=== PATIENT | male | born 1930 | race Caucasian/White ===

== ENCOUNTER 2016-12-16 20:39 | Inpatient (IN) | payer MEDICARE, BC, OTHER ==
--- NOTE | ~2016-12-16 | A ---
[facility] Nutrition Therapy DATE: 12/18/16 Patient: KOFI TRACY Physician: VILMA Address: [address] [facility] Room/Bed: [address] [place] [address], Zip: [place] [address] Admit Date: 12/17/16 Date of : 30 Height: 5 4 Weight: 122 55.6 NUTRITIONAL ASSESSMENT: REASON: EN consult Admitting Dx: 86 y/o male admitted from [facility] with respiratory failure, found to have mild cardiomegaly and CHF exacerbation, YOLA pleural effusions PMH: Afib, SD, CAD, HTN, HLD, CKD, CHF, GERD, CVA with residual dysphagia s/p PEG, diverticular disease Anthropometrics: Ht: 67" (previously reported per family), Wt: 55.6 kg (122 lbs), BMI: 19.1 (normal), 82% IBW Past weights: 113-143 lbs July 2016 Patient appears his current stated weight Labs: K+ 3.1, BUN 48 Meds: Coreg, Furosemide, PPI, Dobutamine/dextrose I/O & Bowel function: LBM unknown Skin Integrity: PEG site abdomen, dry skin, scattered bruises Estimated Nutrition Needs: 3204-0025 kcals per day (25-30 kcals/kg) 61-72 g protein per day (1.1-1.3 g/kg) Fluids consistent with kcal needs or per MD Assessment: Chart reviewed, events noted. See admitting dx and PMH as stated above. RD consulted to leave EN recs via PEG, patient is to remain NPO. Patient not able to participate in his care, poor long-term prognosis. He appears his stated weight and although his BMI is considered normal he is 82% IBW and has obvious signs of muscle and fat wasting. Based on his weight during time of previous RD assessment in July of last year I suspect he has lost approx. 13 lbs in the past 4 months (9.6% body weight; severe loss). It is unclear what EN regimen he is on at [facility], will monitor weight trend closely and adjust EN regimen as needed. Due to his weight loss and physical signs of muscle/fat wasting he qualifies for severe protein calorie malnutrition (see separate documentation for full details). See EN recs as stated below, will follow. Dx: Malnutrition r/t chronic illness, advanced age, dysphagia AEB weight loss > 7.5% in 3 months, obvious subcutaneous fat loss and muscle loss proportional to total weight loss, need for enteral nutrition support. [facility] Nutrition Therapy DATE: 12/18/16 Patient: KOFI TRACY Physician: VILMA Address: [address] [place] [address] Room/Bed: [address] [place] [address], Zip: [place] [address] Admit Date: 12/17/16 Date of : 30 Height: 5 4 Weight: 122 55.6 Intervention: Start EN, replace lytes, closely monitor weight Monitoring, Evaluation and Goals: 1. EN consistent with estimated needs, to provide > 80% goal volume x 24 hours. 2. Prevent further weight loss, increase lean body mass. 3. Lytes WNL. 4. Promote regular BM's. 5. Prevent skin breakdown. Monitor: Per protocol, criteria to determine if above goals met Recommendations: 1. Replace lytes prn (K+ low). 2. Start enteral nutrition via PEG with TwoCal HN formula to provide lower volume feedings noting mild CHF and volume overload. Start at 20 ml/hr and increase by 10 ml q 8 hours until goal rate of 35 ml/hr is reached, to provide 840 ml, 1680 kcals, 70 g protein and 588 ml water. Once at goal rate add free water flushes per MD. 3. Based on the patient's suspected weight loss and obvious signs of muscle/fat wasting he qualifies for severe protein calorie malnutrition. See separate documentation for full details. 4. Daily weights to monitor fluid status and prevent further unintentional weight loss. RD will follow for tolerance of EN Moderate nutrition risk Respectfully, Devi Camargo, MARCO, LD Food and Nutritional Services [facility] cc: client file
--- NOTE | ~2016-12-16 | HP ---
Unit #: [id number] #: [id number] Patient: KOFI TRACY [id number] [address] [place], [place] [address] [id number] I MR#: [id number] NAME: KOFI TRACY. ROOM: 34251 Age: 86 Sex: M Admission Date: 12/17/2016 : 1930 Attending Physician: Tania Bowen M.D. Primary Care Physician: Ronal Lara M.D. HISTORY AND PHYSICAL CHIEF COMPLAINT Respiratory failure. HISTORY This 86-year-old male with ischemic cardiomyopathy, atrial fibrillation, previous CVA with dysphagia, is admitted for shortness of breath. Patient lives at [facility]. He was noted to be using his accessory muscles to breathe with facial edema, diaphoretic and pale. He was brought to this emergency department where he currently is requiring oxygen. Does have crackles in his left base, but also some thick mucus in his mouth. Chest x-ray shows mild cardiomegaly with small bilateral pleural effusions and bibasilar atelectasis versus infiltrates increased on the right from before. BNP is 5,000. In the ER, the patient was given 40 mg of IV Lasix, Zosyn and vancomycin. He was afebrile with a normal white count. Apparently, at the [facility], he may have had a syncopal episode as well. PAST MEDICAL HISTORY 1. Ischemic cardiomyopathy, ejection fraction 15% to 20% with chronic atrial fibrillation. Patient is status post AICD placement. 2. Hyperlipidemia. 3. Chronic kidney disease. 4. 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 Patient has a PEG tube in place. 5. History of anemia. 6. Bilateral hernia repair. 7. Carpal tunnel release. 8. Cataract extraction. 9. PEG tube. ALLERGIES No known drug allergies. [facility] MEDICATIONS 1. Jevity 1.5 calorie liquid, 1 can t.i.d. flush with 200 mL of water and 100 mL before and after feedings three times a day. 2. Lexapro 10 mg daily 3. Lasix 20 mg daily 4. Patient currently is taking cefdinir for possible pneumonia b.i.d. 5. Aspirin 81 mg daily 6. Allopurinol 300 mg daily 7. Protonix 40 mg daily 8. Coreg 3.125 mg b.i.d. Unit #: [id number] #: [id number] Patient: KOFI TRACY 9. Lipitor 40 mg daily 10. Lortab 7.5 b.i.d. p.r.n. 11. DuoNebs q.4 hours as needed 12. Tylenol p.r.n. 13. Skin care lotions p.r.n. FAMILY HISTORY Noncontributory. SOCIAL HISTORY The patient lives at [facility]. He currently does not smoke or drink alcohol. REVIEW OF SYSTEMS Impossible to obtain as patient is confused and hard of hearing. PHYSICAL EXAMINATION GENERAL: Confused and hard of hearing, frail-appearing 86-year-old male currently in no acute distress. VITAL SIGNS: Temperature 98.5, pulse 86, respirations 24, blood pressure 103/74, O2 saturation 100% on 4 L of oxygen. Patient does sound to be congested on exam. HEENT EXAMINATION: Eyes PERRLA. Pharynx edentulous with some mucus in the oropharynx. NECK: Supple without adenopathy or thyromegaly. CHEST: Reveals crackles at the left base. CARDIAC: Normal S1 and S2 without definite murmur. ABDOMEN: Bowel sounds are present. PEG tube is in the upper abdomen and nontender. No hepatosplenomegaly or masses. EXTREMITIES: Without edema. NEUROLOGIC EXAM: Patient is awake, alert. He seems to be a bit confused. His cranial nerves are intact, except that he is hard of hearing. He is generally weak throughout. DIAGNOSTIC STUDIES ADMISSION LABORATORY: Hematocrit 38.3, normal white count, platelet count. Normal coags. BUN 65, albumin 3, alk phos 145, BNP 5,000. Cardiac markers are negative. ABG: pH 7.48, pCO2 36, pO2 102, O2 saturation 96.8% on 3 L oxygen. IMAGING: Chest x-ray - Mild cardiomegaly, small bilateral pleural effusions with bibasilar atelectasis versus infiltrates are increased on the right. CARDIOLOGY: EKG - Ventricular paced rhythm. ASSESSMENT 1. Dyspnea, rule out aspiration. However, patient does have a markedly elevated BNP and history of ischemic cardiomyopathy. 2. Ischemic cardiomyopathy, ejection fraction 15% to 20% with history of atrial arrhythmia status post automatic implantable cardioverter defibrillator (AICD) placement. Had a possible [facility]opal episode at the [facility]. 3. Prior cerebrovascular accident status post tPA, now with dysphagia and percutaneous endoscopic gastrostomy tube. Of note, patient is edentulous. Unit #: [id number] #: [id number] Patient: KOFI TRACY PLANS 1. Vancomycin and cefepime. This will cover for MRSA as well as Gram negatives. As patient is edentulous, do not need to cover for anaerobes. Will continue with DuoNebs on a routine basis and p.r.n. suction. 2. Increase Lasix, repeat cardiac enzymes and ask Cardiology to see. May need dobutamine drip. 3. Patient is a Full Code per the [facility], his long-term prognosis, however, is poor. 4. DVT prophylaxis. Dictated by Sandy Le/psc TD: 12/17/2016 03:35 JOB #: [id number] HISTORY AND PHYSICAL Page 1 of 1 X Tania Bowen MD X HISTORY AND PHYSICAL
--- NOTE | ~2016-12-16 | MAL ---
[facility] Nutrition Therapy DATE: 12/18/16 Patient: KOFI TRACY Physician: VILMA Address: [address] [place] [address] Room/Bed: [address] [place] [address], Zip: [place] [address] Admit Date: 12/17/16 Date of : 30 Height: 5 4 Weight: 122 55.6 PHYSICAL MALNUTRITION ASSESSMENT Energy Intake Comment: Patient is NPO and receives EN via PEG. Unsure of EN regimen at [facility] so unable to assess usual intake. Weight Loss, Chronic Illness Severe: >7.5% past 3 months Weight Loss, Comment: Suspected weight loss of 9.6% body weight in 4 months based on previous and current documented weight. Physical Findings Body Fat and Muscle Mass Severe: (obvious) significant muscle wasting and/or loss of subcutaneous fat Physical Findings Functional Capacity Severe: (obvious) bedridden or otherwise significantly reduced functional capacity Physical Findings Fluid Accumulation Moderate: (suggested) incresed fluid/edema Physical Findings Comment: Patient is basically bedridden and unable to participate in his care, poor long-term prognosis but remains full code at this time. Obvious physical signs of fat/muscle loss include hollow orbitals with dark circles, loss of fat over triceps, severe protrusion of clavicle and severe depression of temporal muscle, depression of interosseous muscles and buccal. Malnutrition Survey Results: Malnutrition identified Malnutrition Etiology Summary: Chronic illness severe Malnutrition Survey Comment: See full RD assessment for recommendations. Respectfully, Devi Camargo, RD, LD Food and Nutritional Services [facility] Nutrition Therapy DATE: 12/18/16 Patient: KOFI TRACY Physician: VILMA Address: [address] [place] [address] Room/Bed: [address] [place] [address], Zip: [place] [address] Admit Date: 12/17/16 Date of : 30 Height: 5 4 Weight: 122 55.6 cc: client file
--- NOTE | ~2016-12-16 | CO ---
Unit #: [id number] #: [id number] Patient: KOFI TRACY [id number] [address] [place], [place] [address] [id number] I MR#: [id number] NAME: KOFI TRACY. ROOM: 304 Age: 86 Sex: M Admission Date: 12/17/2016 : 1930 Attending Physician: Sonal Perez M.D. Primary Care Physician: Ronal Lara M.D. CONSULTATION REPORT REASON FOR CONSULTATION Questionable congestive heart failure. HISTORY OF PRESENT ILLNESS This is an 86-year-old white male who was transferred from [facility] because of shortness of breath, facial edema, diaphoresis and paleness. He was noted to use his accessory muscles for breathing. The patient has had a previous CVA and is unable to provide a history. Information has been obtained from the chart and previous records. According to the records, the patient had a history of a myocardial infarction in 2013 where he underwent angioplasty and stent placement to the left anterior descending artery. He is known to have chronic systolic heart failure and ischemic cardiomyopathy where he has AICD placed. In the emergency room, his BNP was elevated at 4877. He has been started on IV diuretics. PAST MEDICAL HISTORY 1. Myocardial infarction 10/2013 with unsuccessful attempt to dilate LAD. 2. Repeat cardiac catheterization 01/10/2014 which showed fractional flow reserve measurement of 0.9 to the right coronary artery, 70% distal stenosis. Left main normal. LAD with 99% stenosis at the first septal litigation attorney. Mild LAD 50%. Circumflex marginal branch with 99% stenosis. 3. Status post PCI with stent placement to the LAD. 4. 2D echocardiogram in 12/2013 shows ejection fraction of 15% to 20% with moderate mitral regurgitation and mild aortic stenosis and mild tricuspid regurgitation. 5. Chronic systolic heart failure. 6. Permanent atrial fibrillation, not on anticoagulation. 7. Ischemic cardiomyopathy, status post [employer] AICD October 2013. 8. Hypertension. 9. Hyperlipidemia. 10. Cerebrovascular accident. 11. GERD. 12. Anemia. 13. Dysphagia, status post PEG placement. 14. Former smoker. 15. Chronic kidney disease. PAST SURGICAL HISTORY 1. PEG placement. 2. Carpal tunnel release. 3. Cataract extraction. 4. Bilateral hernia repair. Unit #: [id number] #: [id number] Patient: KOFI TRACY 5. AICD implantation. SOCIAL HISTORY The patient resides at [facility]. He quit smoking more than 35 years ago. There is no history of illicit drug or alcohol use. FAMILY HISTORY Negative for coronary artery disease. ALLERGIES No known drug allergies. HOME MEDICATIONS 1. Lasix 20 mg daily. 2. Cefdinir 300 mg b.i.d. 3. Aspirin 81 mg daily. 4. Allopurinol 300 mg daily. 5. Protonix 40 mg daily. 6. Carvedilol 3.125 mg b.i.d. 7. Lipitor 40 mg q. h.s. 8. Hydrocodone/acetaminophen 7.5/325 10 mL b.i.d. p.r.n. 9. Combivent mini nebs q.i.d. p.r.n. 10. Acetaminophen 20 mL q.6 hours p.r.n. 11. Escitalopram oxalate 10 mg daily. REVIEW OF SYSTEMS Unable to obtain because the patient is hard of hearing and nonverbal. PHYSICAL EXAMINATION VITAL SIGNS: Blood pressure 102/70, heart rate 78, temperature 98.6. GENERAL: This is an 86-year-old white male who is in no acute respiratory distress. NEUROLOGICAL: He is hard of hearing but no attempt to speak. Opens eyes briefly. NECK: Trachea is midline. No thyromegaly or lymphadenopathy. Possible jugular venous distention. HEART: S1, S2 with a positive S3. No murmurs, no rubs or clicks. Regular rate and rhythm. ABDOMEN: Soft, nontender with bowel sounds present. EXTREMITIES: Without leg edema. SKIN: Pale and dry. DIAGNOSTIC STUDIES LABORATORY: Hemoglobin 11.6, hematocrit 36.9, platelet count 147, white count 9.1, sodium 138, potassium 3.9, BUN 58, creatinine 1.2, glucose 86. BNP greater than 4877. IMAGING: Chest x-ray shows mild congestive heart failure. There is mild bibasilar atelectasis. Small bilateral pleural effusions. CARDIOVASCULAR: Electrocardiogram shows ventricular paced rhythm with underlying atrial fibrillation. There is lateral wall ischemia with T wave inversion that was sited on previous electrocardiogram. IMPRESSION 1. Acute on chronic systolic heart failure with reduced ejection fraction of 25%. Unit #: [id number] #: [id number] Patient: KOFI TRACY 2. Ischemic cardiomyopathy, status post automatic implantable cardioverter defibrillator. 3. Permanent atrial fibrillation with a controlled ventricular rate. 4. History of cerebrovascular accident. 5. History of coronary artery disease, status post PCI and sent to the [facility] in 2013 after myocardial infarction. PLAN 1. Cardiology was called for congestive heart failure. Agree with IV diuretics. 2. Will start dobutamine drip. 3. Will hold carvedilol while on dobutamine. When blood pressure improves, will start the patient on low dose VAN inhibitor for afterload reduction. Will follow the patient with you. Thank you for allowing us to assist in this patient's care. Dictated by... Michael HenaoPJenniferRJenniferNJennifer for [place]/maria TD: 12/18/2016 07:53 JOB #: [id number] CONSULTATION REPORT Page 1 of 1 X Jon Granda APRN X CONSULTATION REPORT
--- NOTE | ~2016-12-16 | EKG ---
PATIENT: KOFI TRACY UNIT #: [id number] Ventricular Rate: 74 BPM Atrial Rate: 68 BPM QRS Duration: 128 ms Q-T Interval: 420 ms QTC Calculation(Bezet): 466 ms Calculated R [place]: -64 degrees Calculated T [place]: 157 degrees Diagnosis Line: Ventricular-paced rhythm with occasional Premature Diagnosis Line: ventricular complexes Diagnosis Line: Abnormal ECG Diagnosis Line: When compared with ECG of 06-AUG-2016 16:27, Diagnosis Line: Electronic ventricular pacemaker has replaced Diagnosis Line: Atrial fibrillation Diagnosis Line: Confirmed by TERESO BERGER MD ([id number]) on 12/18/2016 Diagnosis Line: 6:56:28 PM INTERPRETING MD: CELINE BECKETT
--- NOTE | ~2016-12-16 | CR72 ---
[facility] A Service of [facility] RADIOLOGY TEXT RESULTS PATIENT: KOFI TRACY LOCATION: [facility] 304-01 : 30 UNIT #: [id number] AGE: [address]: Sonal Perez MD SEX: M ORDER DR: [id number] [facility] [address] [facility]. [place], [place] [address] [id number] MR#: [id number] Acc #: [id number] NAME: KOFI TRACY. : 1930 SEX: M STUDY DATE/TIME: 12/16/2016 21:23 UNIT: [facility] ROOM: STUDY DESCRIPTION: CR Chest Single View Portable Attending Physician: Dennys Jurado M.D. Ordering Physician: Dennys Jurado M.D. Primary Care Physician: Ronal Lara M.D. MEDICAL IMAGING REPORT This report is preliminary unless electronic signature is present EXAM Portable chest. HISTORY Shortness of air and weakness today. FINDINGS Mild cardiac enlargement. Normal pulmonary vascularity. Small bilateral pleural effusions. Mild patchy bibasilar atelectasis or infiltrate, similar on the left and increased on the right compared to 08/06/2016. Mild right lower thoracic curve. IMPRESSION Mild cardiac enlargement with small bilateral pleural effusions and mild bibasilar atelectasis or infiltrate, similar on the left and slightly increased on the right compared to 08/06/2016. Dictated by... Dao Dalton M.D. THIS IS AN ELECTRONICALLY VERIFIED REPORT Dao Dalton M.D. at 12/17/2016 2:30 PM DFVipin/jeffrey TD: 12/17/2016 00:36 JOB #: [id number] MEDICAL IMAGING REPORT Page 1 of 1 COPY
--- NOTE | ~2016-12-16 | DS ---
Unit #: [id number] #: [id number] Patient: KOFI TRACY [id number] [address] [address] [id number] I MR#: [id number] NAME: KOFI TRACY. ROOM: 304 Age: 86 Sex: M Admission Date: 12/17/2016 : 1930 Discharge Date: 12/19/2016 Attending Physician: Sonal Perez M.D. Primary Care Physician: Ronal Lara M.D. DISCHARGE SUMMARY PRINCIPAL DIAGNOSES 1. Kvjzj-tf-ksgahre systolic congestive heart failure with ejection fraction of 20%. 2. Acute hypoxic respiratory failure, secondary to #1, now resolved. 3. Chronic kidney disease stage 3. Baseline creatinine of 1.2. Discharge creatinine 1.2. 4. Chronic atrial fibrillation, rate controlled and not on anticoagulation. 5. History of stroke with subsequent dysphagia. 6. Dysphagia, status post percutaneous endoscopic gastrostomy tube and maintained on tube feeds. 7. Memory loss, likely vascular dementia. 8. Mild hypokalemia. 9. Chronic immobility. 10. Hyperlipidemia. 11. Moderate protein malnutrition. CONSULTANTS Dr. Robertson, cardiology. PROCEDURES Chest x-ray on December 16, 2016 with cardiac enlargement and small bilateral pleural effusions. Mild bibasilar atelectasis. CLINICAL HISTORY AND HOSPITAL COURSE Mr. Tracy is an 86-year-old male who presents to the emergency department from his long-term care facility with increasing shortness of breath. In the emergency department BNP was approximately 5000. Chest x-ray revealed questionable atelectasis versus infiltrate. White blood cell count upon presentation was normal. Patient was subsequently admitted. Patient was started on IV diuretics and Cardiology was consulted. patient was subsequently placed on IV dobutamine and did have a good diuresis. His associated respiratory failure resolved with diuresis. Patient has been transitioned back to oral diuretics which he will continue at the nursing facility for comfort measures. Hypoxia has resolved. Again there were concerns about questionable pneumonia upon presentation however patient remained afebrile and had normal white blood cell count. Given his elevated BNP antibiotics were discontinued and patient remained stable. I doubt pneumonia and no further antibiotics will be given. Unit #: [id number] #: [id number] Patient: KOFI TRACY I discussed goals of care with the patient's son, Jatin Tracy. Patient has had significant physical and mental decline over the last month or so. At this time patient's code status has been changed to DNR and it is Jatin's wishes that patient be made comfortable only thus he is going to return to his nursing facility with palliative care only. DISCHARGE CONDITION Stable. DISCHARGE STATUS Return to custodial with palliative care. DISCHARGE MEDICATIONS 1. DuoNeb nebulizer treatments 3 mL q.i.d. p.r.n. for shortness of air. 2. Tylenol Elixir 325 mg per 10 mL. Patient takes 20 mL per PEG q.6 h. p.r.n. for fever. 3. Lexapro 10 mg per PEG daily. 4. Coreg 3.125 mg per PEG b.i.d. 5. Jevity 1.5 one can per PEG t.i.d. Patient is to take 200 mL of free water q.i.d. with 100 mL of free water before and after feedings t.i.d. 6. Lasix 40 mg per PEG b.i.d. 7. Allopurinol 300 mg per PEG daily. 8. Aspirin 81 mg per PEG daily. 9. Lortab Elixir 7.5/325 mg per 15 mL. Patient is to take 10 mL per PEG q.12 h. p.r.n. for pain. 10. Protonix 40 mg per PEG daily. DISCHARGE INSTRUCTIONS 1. Patient will remain n.p.o. and receive his medications per PEG. However I will note that goal is comfort only. I think if patient wants to eat or wants to drink he could do so with the understanding by his family that this will result in aspiration and shortness of breath. 2. Patient is chronically immobile but can try to increase activity if he so desires. FOLLOWUP Per claim review medical director of facility; again patient is now DNR per family request and will be palliative care at the nursing facility. Dictated by... Sonal Perez M.D. Terra/lin TD: 12/19/2016 15:34 JOB #: [id number] Unit #: [id number] #: [id number] Patient: KOFI TRACY DISCHARGE SUMMARY Page 1 of 1 X Sonal Perez MD X DISCHARGE SUMMARY
[~2016-12-16 20:39] MED LIST: ACETAMINOPHEN PO; ALDACTONE PO; ALDACTONE25 MG PO; ALLOPURINOL300 MG GT; ALLOPURINOL300 MG PO; AMIODARONE PO; ASPIRIN81 M2 PO; ASPIRIN81 MG GT; ASPIRIN81 MG PO; AUGMENTIN875 M1 PO; BACITRACIN1 GM OINT TD; CARAFATE; CARVEDILOL3.125 MG GT; CARVEDILOL6.25 MG PO; CLOPIDOGREL75 MG PO; CORDARONE200 M1 PO; COREG PO; COREG6.25 MG PO; COUMADIN5 MG PO; DESENEX45 G1 EXT; FEVER REDU160 MG/5 M GT; FLOMAX0.4 M1 DOB; FLOMAX0.4 M1 PO; FUROSEMIDE GT; HYDROCODON-ACE1 EAC7 PO; HYDROCODON-ACE1 EACH PO; IPRAT-ALBUT 0.5-3 ML INH; ISORDIL PO; ISOSORBIDE MONO30 M1 PO; K-SOL20 MEQ/15 GT; LASIX PO; LASIX20 MG PO; LIPITOR40 MG GT; LIPITOR40 MG PO; LISINOPRIL-HCTZ1 T15 PO; LISINOPRIL-HCTZ1 T19 PO; LISINOPRIL2.5 MG PO; LISINOPRIL20 MG; LISINOPRIL5 MG PO; LORTAB 5/500 TA1 TA2 GT; MAPAP16 MG/0.5 GT; NEXIUM; NEXIUM PO; NORVASC PO; NOVOLOG100 U/ML; OMNICEF300 M1 PO; PLAVIX PO; PROTONIX PO; PROTONIX40 MG/BLIS GT; REMEDY NUTRASH TOP; SIMVASTATIN20 MG PO; ST JOSEPH ASPIR81 MG PO; TRIAMTERENE-HC1 EAC1 PO; TRIAMTERENE-HCT1 TA8 PO; TRIAMTERENE/HCTZ; TYLOX 5-500 CA1 EACH PO; VICODIN 5/500 T1 TAB PO; ZANTAC150 M1 PO; ZANTAC150 MG PO; ZEASORB AF TOP; ZEGERID 20 MG C1 CAP PO; ZITHROMAX500 MG PO; ZOCOR PO; ZYLOPRIM PO
[2016-12-16 21:26] LABS: ARTERIAL BLD GAS O2 SATURATION 96.8 % (90.0-100.0); ARTERIAL BLOOD GAS CARBOXY HB 1.7 %sat (0.0-9.0); ARTERIAL BLOOD GAS HCO3 27.6 mmol/L; ARTERIAL BLOOD GAS MET HB 0.5 %sat (0.0-2.0); ARTERIAL BLOOD GAS PCO2 36.5 mmHg (35.0-45.0); ARTERIAL BLOOD GAS pH 7.487 (7.350-7.450)
[2016-12-16 21:27] LABS: ARTERIAL BLOOD GAS ALLEN TEST NORMAL; ARTERIAL BLOOD GAS ART SITE RIGHT RADIAL; ARTERIAL BLOOD GAS DELIVERY NASAL CANNULA; ARTERIAL DRAW? YES
[2016-12-16 21:56] LABS: BASOPHIL# 0.1 X10e3 (0-0.3); BASOPHIL% 0.7 % (0-2.5); EOSINOPHIL% 0.4 % (0.0-7.0); HEMATOCRIT 38.3 % (38.0-50.0); HEMOGLOBIN 12.1 gm/dL (13.0-16.0); LYMPHOCYTE% 10.9 % (17.0-45.0); MEAN CELL VOLUME 95.8 FL (83-96); MEAN CORPUSCULAR HEMOGLOBIN 30.3 PG (28-34); MEAN CORPUSCULAR HGB CONC 31.6 g/dL (30-36); MEAN PLATELET VOLUME 10.1 FL (6.5-11.5); MONOCYTE# 1.1 X10e3 (0-1.0); MONOCYTE% 12.6 % (3.0-12.0); NEUTROPHIL# 6.7 X10e3 (1.5-7.1); NEUTROPHIL% 75.4 % (40-75); PLATELET COUNT 162 X10e3 (140-420); RED BLOOD COUNT 3.99 X10e (3.90-5.60); RED CELL DISTRIBUTION WIDTH 20.8 % (11.0-15.5); WHITE BLOOD COUNT 8.9 X10e3 (4.0-10.5)
[2016-12-16 21:58] LABS: DIFF IND NO
[2016-12-16 22:10] LABS: INR 1.2; PROTHROMBIN TIME (PATIENT) 12.8 SECONDS (9.6-11.5)
[2016-12-16 22:19] LABS: BILIRUBIN, DIRECT 0.2 mg/dL (0.0-0.2); BILIRUBIN,INDIRECT 0.7 mg/dL (0.0-0.9); BILIRUBIN,TOTAL 0.9 mg/dL (0.2-2.0); BUN/CREATININE RATIO 59.09; CALCIUM SERUM 8.7 mg/dL (8.4-10.2); CREATININE SERUM 1.1 mg/dL (0.6-1.4); GLOM FILT RATE Estimated 60.5 mL/min (>60); POTASSIUM 4.7 mmol/L (3.5-5.1); PROTEIN TOTAL SERUM 6.2 g/dL (6.0-8.3)
[2016-12-16 22:36] LABS: POC - CKMB 1.8 ng/mL (0.0-7.9); POC - TROPONIN <0.05 ng/mL (<=0.05)
[2016-12-17] MEDS ORDERED: ESCITALOPRAM OX10 MG GT (02:38)
[2016-12-17] MEDS ORDERED: JEVITY 1.5 CAL237 ML PEG (02:38)
[2016-12-17] MEDS ORDERED: LASIX20 MG GT (02:39)
[2016-12-17] MEDS ORDERED: ASPIRIN81 M2 PEG (02:40)
[2016-12-17] MEDS ORDERED: ALLOPURINOL300 MG PEG (02:40)
[2016-12-17] MEDS ORDERED: CEFDINIR300 M2 PEG (02:40)
[2016-12-17] MEDS ORDERED: CARVEDILOL3.125 MG PEG (02:43)
[2016-12-17] MEDS ORDERED: PROTONIX40 M1 PEG (02:43)
[2016-12-17] MEDS ORDERED: LIPITOR40 MG PEG (02:44)
[2016-12-17] MEDS ORDERED: IPRAT-ALBUT 0.5-3 ML INH (02:45)
[2016-12-17] MEDS ORDERED: HYDROCODON-ACET15 M1 PEG (02:45)
[2016-12-17] MEDS ORDERED: ACETAMINOP PEG (02:46)
[2016-12-17 07:45] LABS: BASOPHIL# 0.1 X10e3 (0-0.3); BASOPHIL% 0.7 % (0-2.5); EOSINOPHIL# 0.1 X10e3 (0-0.7); HEMATOCRIT 36.9 % (38.0-50.0); HEMOGLOBIN 11.6 gm/dL (13.0-16.0); LYMPHOCYTE# 1.1 X10e3 (1.0-3.5); MEAN CELL VOLUME 96.1 FL (83-96); MEAN CORPUSCULAR HEMOGLOBIN 30.3 PG (28-34); MEAN CORPUSCULAR HGB CONC 31.6 g/dL (30-36); MEAN PLATELET VOLUME 10.3 FL (6.5-11.5); MONOCYTE# 1.1 X10e3 (0-1.0); MONOCYTE% 12.7 % (3.0-12.0); NEUTROPHIL# 6.7 X10e3 (1.5-7.1); NEUTROPHIL% 73.6 % (40-75); PLATELET COUNT 147 X10e3 (140-420); RED BLOOD COUNT 3.84 X10e (3.90-5.60); RED CELL DISTRIBUTION WIDTH 20.2 % (11.0-15.5); WHITE BLOOD COUNT 9.1 X10e3 (4.0-10.5)
[2016-12-17 07:49] LABS: DIFF IND NO
[2016-12-17 08:09] LABS: BUN/CREATININE RATIO 48.33; CALCIUM SERUM 8.6 mg/dL (8.4-10.2); CREATININE SERUM 1.2 mg/dL (0.6-1.4); GLOM FILT RATE Estimated 54.4 mL/min (>60); POTASSIUM 3.9 mmol/L (3.5-5.1)
[2016-12-18 05:42] LABS: HEMATOCRIT 38.1 % (38.0-50.0); HEMOGLOBIN 12.1 gm/dL (13.0-16.0); MEAN CELL VOLUME 96.3 FL (83-96); MEAN CORPUSCULAR HEMOGLOBIN 30.6 PG (28-34); MEAN CORPUSCULAR HGB CONC 31.7 g/dL (30-36); MEAN PLATELET VOLUME 10.3 FL (6.5-11.5); RED BLOOD COUNT 3.95 X10e (3.90-5.60); RED CELL DISTRIBUTION WIDTH 20.1 % (11.0-15.5); WHITE BLOOD COUNT 8.3 X10e3 (4.0-10.5)
[2016-12-18 06:08] LABS: BUN/CREATININE RATIO 43.63; CALCIUM SERUM 8.8 mg/dL (8.4-10.2); CREATININE SERUM 1.1 mg/dL (0.6-1.4); GLOM FILT RATE Estimated 60.5 mL/min (>60); POTASSIUM 3.1 mmol/L (3.5-5.1)
[2016-12-19 05:10] LABS: HEMATOCRIT 36.8 % (38.0-50.0); HEMOGLOBIN 11.6 gm/dL (13.0-16.0); MEAN CELL VOLUME 95.3 FL (83-96); MEAN CORPUSCULAR HEMOGLOBIN 30.1 PG (28-34); MEAN CORPUSCULAR HGB CONC 31.6 g/dL (30-36); MEAN PLATELET VOLUME 9.9 FL (6.5-11.5); RED BLOOD COUNT 3.86 X10e (3.90-5.60); RED CELL DISTRIBUTION WIDTH 20.8 % (11.0-15.5); WHITE BLOOD COUNT 7.1 X10e3 (4.0-10.5)
[2016-12-19 06:24] LABS: BUN/CREATININE RATIO 33.33; CALCIUM SERUM 8.8 mg/dL (8.4-10.2); CREATININE SERUM 1.2 mg/dL (0.6-1.4); GLOM FILT RATE Estimated 54.4 mL/min (>60); POTASSIUM 3.9 mmol/L (3.5-5.1)
== END 2016-12-19 17:29 | DRG 291 ==
LOC: CED 20:39 → CEDOF 12-17 02:30 → C3A PCU 12-17 14:26
PROVIDERS: Emergency Medicine; Internal Medicine
DX: I13.0 Hypertensive heart and chronic kidney disease with heart failure and stage 1 through stage 4 chronic kidney disease, or unspecified chronic kidney disease (principal); I50.23 Acute on chronic systolic (congestive) heart failure; J96.01 Acute respiratory failure with hypoxia; N18.3 Chronic kidney disease, stage 3 (moderate); I48.2 Chronic atrial fibrillation; E44.0 Moderate protein-calorie malnutrition; F01.50 Vascular dementia, unspecified severity, without behavioral disturbance, psychotic disturbance, mood disturbance, and anxiety; Z93.1 Gastrostomy status; R13.10 Dysphagia, unspecified; Z87.891 Personal history of nicotine dependence; I25.5 Ischemic cardiomyopathy; I25.2 Old myocardial infarction; Z68.21 Body mass index [BMI] 21.0-21.9, adult; E78.5 Hyperlipidemia, unspecified; E87.6 Hypokalemia; M62.3 Immobility syndrome (paraplegic); Z66 Do not resuscitate; I69.391 Dysphagia following cerebral infarction; K21.9 Gastro-esophageal reflux disease without esophagitis; I25.10 Atherosclerotic heart disease of native coronary artery without angina pectoris; Z95.5 Presence of coronary angioplasty implant and graft; Z95.810 Presence of automatic (implantable) cardiac defibrillator; Z98.49 Cataract extraction status, unspecified eye
CPT/HCPCS: 36415; 36600; 71010; 80048; 80076; 82308; 82550; 82553; 82803; 83605; 83880; 84484; 85025; 85027; 85610; 85730; 87040; 93005; 94640; 94760; 99285; C9113; J0692; J1250; J1650; J1940; J2543; J3370; J3490

== ENCOUNTER 2017-03-18 17:50 | Emergency (ER) | payer MEDICARE, BC, OTHER ==
--- NOTE | ~2017-03-18 | CT4 ---
[facility] A Service of [facility] & [facility] RADIOLOGY TEXT RESULTS PATIENT: KOFI TRACY LOCATION: [facility] : 30 UNIT #: [id number] AGE: [address]: Tequila Mejia MD SEX: M ORDER DR: [id number] [facility] [address] [place], [place] [address] [id number] MR#: [id number] #: [id number] NAME: KOFI TRACY. : 1930 SEX: M STUDY DATE/TIME: 03/18/2017 21:25 UNIT: [facility] ROOM: STUDY DESCRIPTION: CT Abd and Pelv Wo Cont Attending Physician: Tequila Mejia M.D. Ordering Physician: Tequila Mejia M.D. Primary Care Physician: Ronal Lara M.D. MEDICAL IMAGING REPORT This report is preliminary unless electronic signature is present EXAM Abdomen and pelvis CT, no contrast, 03/18/2017 INDICATIONS Vomiting 4 days, dark emesis today, nausea. No history of malignancy. TECHNIQUE Noncontrast CT of the abdomen and pelvis was performed and compared with 07/14/2016. This CT exam was performed with one or more of the following radiation dose reduction techniques: Automatic exposure control, adjustment of mA and/or kV according to patient size, and iterative reconstruction. FINDINGS CT ABDOMEN: Exam markedly degraded by noncontrast technique. The lung bases are emphysematous. There has been resolution of a right-sided effusion. There is chronic-appearing pleural thickening and atelectasis in the left lung base. The appearance is similar to the prior study for technical factors. Aorta demonstrates atherosclerotic change but no aneurysm. Spleen and adrenal glands unremarkable, and the pancreas is atrophic. Gallbladder unremarkable, liver unremarkable. Extensive atherosclerotic calcifications of the splenic artery. Kidneys demonstrate no radiopaque stone or hydronephrosis. There are bilateral renal cysts, unchanged. G-tube present in the stomach. CT PELVIS: Bladder unremarkable. Moderate-sized stool ball within the rectum may reflect moderately severe constipation or early fecal impaction, correlate clinically. Prostate within normal limits; no drainable fluid collection in the pelvis. There is intermittent STS. [facility] A Service of [facility] & [facility] RADIOLOGY TEXT RESULTS PATIENT: KOFI TRACY [facility] #: [id number] : 30 UNIT #: [id number] AGE: [address]: Tequila Mejia MD SEX: M ORDER DR: diverticulosis of the colon. Appendix not clearly demonstrated and no secondary sign of appendicitis or inflammatory change in the right lower quadrant. There is fluid or potentially a nondescended testicle in the right inguinal canal. No inguinal adenopathy. Probable sequelae of inguinal hernia repair on the left. No free air. There are degenerative changes in the thoracolumbar spine. IMPRESSION 1. Moderate-sized stool ball within the rectum, which may reflect fecal impaction or at least moderately severe constipation. No upstream bowel obstruction or associated drainable fluid collection. 2. Resolution of a right-sided effusion. Chronic-appearing pleural thickening and rounded atelectasis in the left lower lobe, unchanged. Background emphysema. 3. Diverticulosis. 4. Bilateral renal cysts. Dictated by... Wale Peterson M.D. THIS IS AN ELECTRONICALLY VERIFIED REPORT Wale Peterson M.D. at 03/19/2017 6:04 PM YAMIL/nori TD: 03/18/2017 23:57 JOB #: [id number] MEDICAL IMAGING REPORT Page 1 of 1 COPY
--- NOTE | ~2017-03-18 | EKG ---
PATIENT: KOFI TRACY UNIT #: [id number] Ventricular Rate: 64 BPM Atrial Rate: 64 BPM P-R Interval: 178 ms QRS Duration: 138 ms Q-T Interval: 460 ms QTC Calculation(Bezet): 474 ms P Webster: 86 degrees Calculated R Webster: -68 degrees Calculated T Webster: 86 degrees Diagnosis Line: Normal sinus rhythm Diagnosis Line: Left axis deviation Diagnosis Line: Non-specific intra-ventricular conduction block Diagnosis Line: T wave abnormality, consider lateral ischemia Diagnosis Line: Abnormal ECG Diagnosis Line: When compared with ECG of 16-DEC-2016 22:18, Diagnosis Line: Sinus rhythm has replaced Electronic ventricular Diagnosis Line: pacemaker Diagnosis Line: Confirmed by EUSEBIA RAI MD ([id number]) on Diagnosis Line: 03/19/2017 8:02:04 AM INTERPRETING MD: FREDI BECKETT
[~2017-03-18 17:50] MED LIST changes: +ACETAMINOP PEG; +ALLOPURINOL300 MG PEG; +ASPIRIN81 M2 PEG; +CARVEDILOL3.125 MG PEG; +CEFDINIR300 M2 PEG; +ESCITALOPRAM OX10 MG GT; +HYDROCODON-ACET15 M1 PEG; +JEVITY 1.5 CAL237 ML PEG; +LASIX20 MG GT; +LIPITOR40 MG PEG; +PROTONIX40 M1 PEG
[2017-03-18 19:23] LABS: BASOPHIL# 0.1 X10e3 (0-0.3); BASOPHIL% 0.7 % (0-2.5); EOSINOPHIL# 0.2 X10e3 (0-0.7); EOSINOPHIL% 2.1 % (0.0-7.0); HEMATOCRIT 37.3 % (38.0-50.0); LYMPHOCYTE# 1.4 X10e3 (1.0-3.5); LYMPHOCYTE% 17.1 % (17.0-45.0); MEAN CELL VOLUME 92.8 FL (83-96); MEAN CORPUSCULAR HEMOGLOBIN 29.7 PG (28-34); MEAN CORPUSCULAR HGB CONC 32.1 g/dL (30-36); MONOCYTE# 0.8 X10e3 (0-1.0); MONOCYTE% 9.7 % (3.0-12.0); NEUTROPHIL# 5.6 X10e3 (1.5-7.1); NEUTROPHIL% 70.4 % (40-75); PLATELET COUNT 190 X10e3 (140-420); RED BLOOD COUNT 4.02 X10e (3.90-5.60); RED CELL DISTRIBUTION WIDTH 17.1 % (11.0-15.5)
[2017-03-18 19:29] LABS: DIFF IND NO
[2017-03-18 19:46] LABS: ALBUMIN SERUM 3.2 g/dL (3.5-5.0); BILIRUBIN,TOTAL 1.1 mg/dL (0.2-2.0); BUN/CREATININE RATIO 55.45; CALCIUM SERUM 9.8 mg/dL (8.4-10.2); CREATININE SERUM 1.1 mg/dL (0.6-1.4); GLOM FILT RATE Estimated 60.1 mL/min (>60); POTASSIUM 3.8 mmol/L (3.5-5.1); PROTEIN TOTAL SERUM 7.7 g/dL (6.0-8.3)
[2017-03-18 19:52] LABS: POC - CKMB 1.5 ng/mL (0.0-7.9); POC - TROPONIN <0.05 ng/mL (<=0.05)
[2017-03-18 20:59] LABS: URINE SOURCE CLEAN CATCH
[2017-03-18 21:06] LABS: URINE APPEARANCE CLEAR; URINE BILIRUBIN NEG (NEG); URINE BLOOD NEG (NEG); URINE COLOR YELLOW; URINE GLUCOSE NEG (NEG); URINE KETONE NEG (NEG); URINE LEUKOCYTE ESTERASE 2+ (NEG); URINE NITRATE NEG (NEG); URINE PH 7.5 (5-8); URINE PROTEIN NEG (NEG); URINE SPECIFIC GRAVITY 1.014 (1.003-1.035)
[2017-03-18 21:09] LABS: CULTURE INDICATED? YES; U HYALINE CASTS AUWI 0-2 /[LPF]; URBCS1 AUWI 0-2 /[HPF] (0-2); URINE BACTERIA AUWI 2+ (NEGATIVE); URINE SQUAMOUS EPITHELIAL CELL OCC /[HPF]
[2017-03-18 21:28] LABS: POC - CKMB 1.5 ng/mL (0.0-7.9); POC - TROPONIN <0.05 ng/mL (<=0.05)
== END 2017-03-19 00:13 | disposition home or self-care (01) ==
LOC: CED 17:50
PROVIDERS: Student in an Organized Health Care Education/Training Program
DX: K56.41 Fecal impaction (principal); I13.0 Hypertensive heart and chronic kidney disease with heart failure and stage 1 through stage 4 chronic kidney disease, or unspecified chronic kidney disease; I50.9 Heart failure, unspecified; N18.3 Chronic kidney disease, stage 3 (moderate); E11.22 Type 2 diabetes mellitus with diabetic chronic kidney disease
CPT/HCPCS: 36415; 51701; 74176; 80053; 81003; 82150; 82553; 82947; 83690; 84484; 85025; 87086; 93005; 96361; 96365; 96366; 96375; 96376; 99284; C9113; J2405